=== PATIENT | female | born 1960 | race Caucasian/White ===

== ENCOUNTER 2018-04-23 12:47 | Emergency (ER) | payer MEDICAID ==
[2018-04-23] MEDS ORDERED: Acetaminophen/HYDROcodone 325-5 MG Tab ONE (13:00)
--- NOTE | 2018-04-23 13:28 | EDM.PDOC ---
ED HPI GENERAL MEDICAL PROBLEM - General Chief Complaint: General Stated Complaint: Lft Knee pain post inj Time Seen by Provider: 04/23/18 13:00 Source of Information: Reports: Patient History Limitations: Reports: No Limitations - History of Present Illness INITIAL COMMENTS - FREE TEXT/NARRATIVE: According to patient she had her left knee injected yesterday morning by . She claims that she had her knee injected with kenalog, and went back to work. she claims that her knee started hurting after injection and today has got worse. hurts to walk on her knee. She can bend her knee. no swelling of the left knee. No redness around the knee. Pt can weight bear on the knee, but hurts. no locking of the knee. Rate her knee pain at 10/10. Onset Date: 04/22/18 Location: Reports: Lower Extremity, Left Quality: Reports: Ache Severity: Severe Improves with: Reports: None Worsens with: Reports: None Associated Symptoms: Denies: Confusion, Chest Pain, Cough, Diaphoresis, Fever/ Chills, Headaches, Loss of Appetite, Malaise, Nausea/Vomiting, Rash, Seizure, Shortness of Breath, Syncope, Weakness - Related Data Allergies Allergy/AdvReac Type Severity Reaction Status Date / Time Sulfa (Sulfonamide Allergy Rash Verified 10/09/13 14:15 Antibiotics) ED ROS GENERAL - Review of Systems Review Of Systems: See Below Constitutional: Denies: Fever, Chills HEENT: Denies: Rhinitis, Throat Pain, Throat Swelling Respiratory: Denies: Cough, Sputum Cardiovascular: Denies: Chest Pain, Lightheadedness GI/Abdominal: Denies: Nausea, Vomiting Musculoskeletal: Reports: Joint Pain. Denies: Leg Pain, Foot Pain, Joint Swelling Skin: Reports: Bruising. Denies: Jaundice, Pruritis, Rash, Erythema ED EXAM, GENERAL - Physical Exam Exam: See Below Exam Limited By: No Limitations General Appearance: Alert, WD/WN, Mild Distress Eye Exam: Bilateral Eye: EOMI, PERRL Ears: Normal External Exam, Normal Canal, Hearing Grossly Normal, Normal TMs Ear Exam: Bilateral Ear: Auricle Normal, Canal Normal, TM normal Nose: Normal Inspection, Normal Mucosa, No Blood Throat/Mouth: Normal Inspection, Normal Lips, Normal Teeth, Normal Gums, Normal Oropharynx, Normal Voice, No Airway Compromise Head: Atraumatic, Normocephalic Neck: Normal Inspection, Supple, Non-Tender, Full Range of Motion Respiratory/Chest: No Respiratory Distress, Lungs Clear, Normal Breath Sounds, No Accessory Muscle Use, Chest Non-Tender Extremities: Normal Inspection, Normal Range of Motion, No Pedal Edema, Normal Capillary Refill, Other (left knee: There is skin brusiing at the injection site over the lateral aspect of the knee. HAs normal flexion and extension of the knee. no effsuion around the knee. No patellar tenderness. No warmth around the joint. She can weight bear on the knee, but painful gait.) Course - Vital Signs Text/Narrative:: Pt just had her left knee joint injected yesterday, has pain all around the knee joint. there is no redness, swelling noted. can weight bear and walk. this could be early joint infection or trauma to bone or hemarthrosis from injection. Xray of left knee shows increased swelling of the soft tissue around the joint. No joint effusion or acute injury noted. CBC is normal. Pt reassured and I have started her on vicodin 5/325 1 every 8 hrs as needed. side effects discussed. Avoid driving when on vicodin. Alternate heat with cold every 2-3 hrs. Rest and elevated the left leg. - Orders/Labs/Meds Orders: Active Orders 24 hr Category Date Time Status Knee 3V Lt [CR] Stat Exams 04/23/18 13:17 Ordered CBC WITH AUTO DIFF [HEME] Stat Lab 04/23/18 13:17 Ordered Departure - Departure Time of Disposition: 14:00 Disposition: Home, Self-Care 01 Condition: Fair Clinical Impression: Left knee pain - Discharge Information *PRESCRIPTION DRUG MONITORING PROGRAM REVIEWED*: Not Applicable *COPY OF PRESCRIPTION DRUG MONITORING REPORT IN PATIENT DEVON: Not Applicable Instructions: Knee Pain, Adult Referrals: PCP,None [Primary Care Provider] - Additional Instructions: Xray of left knee shows increased swelling of the soft tissue around the joint. No joint effusion or acute injury noted. CBC is normal. Pt is tender all around the joint. Pt reassured and I have started her on vicodin 5/325 1 every 8 hrs as needed. brian effects discussed. Avoid driving when on vicodin. alternate heat with cold every 2-3 hrs. Rest and elevated the left leg. - Problem List & Annotations (1) Left knee pain SNOMED Code(s): 61308367 Code(s): M25.562 - PAIN IN LEFT KNEE Status: Acute Current Visit: Yes - Problem List Review Problem List Initiated/Reviewed/Updated: Yes - My Orders Last 24 Hours: My Active Orders 04/23/18 13:17 Knee 3V Lt [CR] Stat CBC WITH AUTO DIFF [HEME] Stat - Assessment/Plan Last 24 Hours: My Active Orders 04/23/18 13:17 Knee 3V Lt [CR] Stat CBC WITH AUTO DIFF [HEME] Stat Assessment:: left knee pain
--- NOTE | 2018-04-24 08:34 | CR ---
DATE OF SERVICE: 04/23/18 CLINICAL DATA: knee pain LEFT KNEE: Comparison is made to a prior exam dated 02/08/18. No significant changes. No acute abnormalities. [id number] [facility]
== END 2018-04-23 14:05 | disposition home or self-care (01) ==
LOC: LB.ED 12:47
DX: M25.562 Pain in left knee (principal); Z88.2 Allergy status to sulfonamides
CPT/HCPCS: 36415; 73562; 85025; 99283; A9270

== ENCOUNTER 2020-09-03 10:43 | Observation (INO) | payer OTHER, MEDICAID ==
[2020-09-03] MEDS ORDERED: Sodium Chloride 0.9% 1,000 ML IV ONE (11:31)
[2020-09-03] MEDS ORDERED: HYDROmorphone 2 MG/ML SDV IVPUSH ONE (11:31)
[2020-09-03] MEDS ORDERED: HYDROmorphone 2 MG/ML SDV ONE (11:37)
--- NOTE | 2020-09-03 12:07 | EDM.PDOC ---
ED HPI GENERAL MEDICAL PROBLEM - General Chief Complaint: General Stated Complaint: COVID SYMPTOMS Time Seen by Provider: 09/03/20 11:45 Source of Information: Reports: Other (patient sent by Krista MCCORD from out patient clinic ) History Limitations: Reports: No Limitations - History of Present Illness INITIAL COMMENTS - FREE TEXT/NARRATIVE: 60 year old female came to Out door facility for post covid check up -referred to ER as she was feeling weak ,fatigued & short of breath & irrelevant speech.She was covid positive on aug 11 . she was seen in [facility] care in [facility] on aug 26 2020 Today she said that she is not feeling well -She reports that she is out of breath on walking.She reports on & off headache. The patient talks to much ,I called to & he told that she goes non stop talking ,sometime she had bad thoughts regarding his daughter & himself . He said that these symptoms happening for last 3 weeks after hits her .He reports that before she was doing every thing ok. denies fever, N/V ,vomiting , chest pain abd pain Onset: Today, Gradual Onset Date: 09/03/20 Onset Time: 10:00 Duration: Day(s): (6), Getting Worse Improves with: Reports: None Worsens with: Reports: None, Movement Associated Symptoms: Reports: Shortness of Breath, Weakness, Other (irelavent talks ) Generalized Pain Score (Numeric/FACES): 8 - Related Data Allergies Allergy/AdvReac Type Severity Reaction Status Date / Time Sulfa (Sulfonamide Allergy Rash Verified 09/03/20 11:29 Antibiotics) Home Meds: Home Meds Aspirin 81 mg PO DAILY 09/03/20 [History] Cyclobenzaprine [Flexeril] 10 mg PO BEDTIME 09/03/20 [History] FLUoxetine [PROzac] 20 mg PO BID 09/03/20 [History] Furosemide [Lasix] 20 mg PO DAILY 09/03/20 [History] Losartan [Cozaar] 50 mg PO BID 09/03/20 [History] Naproxen Sodium 220 mg PO BID 09/03/20 [History] Pantoprazole Sodium [Protonix] 40 mg PO DAILY 09/03/20 [History] Verapamil [Verelan] 240 mg PO DAILY 09/03/20 [History] Zolpidem Tartrate [Ambien] 10 mg PO BEDTIME 09/03/20 [History] tiZANidine [Zanaflex] 4 mg PO BEDTIME 09/03/20 [History] traMADol [Ultram] 50 mg PO Q6H PRN 09/03/20 [History] Past Medical History Cardiovascular History: Reports: Aneurysm (unruptured aneurysim of ascending aorta), Hypertension, SOB on Exertion Respiratory History: Reports: Other (See Below) (post covid symptoms) Musculoskeletal History: Reports: Fibromyalgia, Osteoarthritis, Other (See Below) (fibromylagia) Psychiatric History: Reports: Bipolar - Past Surgical History Other Surgical History Comment: bldder repair w urethral sling. joint replacement. laproscopic tubal ligation ED ROS GENERAL - Review of Systems Review Of Systems: See Below Constitutional: Reports: No Symptoms, Weakness, Fatigue HEENT: Reports: No Symptoms Respiratory: Reports: Shortness of Breath, Cough, Sputum, Other (rhonchi noted on basal area ) Cardiovascular: Reports: No Symptoms Endocrine: Reports: No Symptoms GI/Abdominal: Reports: No Symptoms : Reports: No Symptoms Musculoskeletal: Reports: No Symptoms, Other (myalgia ) Skin: Reports: No Symptoms Neurological: Reports: No Symptoms, Headache, Trouble Speaking, Change in Speech Psychiatric: Reports: No Symptoms, Other (excessive talking &start crying ) ED EXAM, GENERAL - Physical Exam Exam: See Below Exam Limited By: Other (presureed irrelavent speech) General Appearance: Alert, WD/WN, Anxious, Obese Nose: Normal Inspection Throat/Mouth: Normal Inspection Head: Atraumatic, Normocephalic Neck: Normal Inspection, Supple, Non-Tender, Full Range of Motion Respiratory/Chest: No Respiratory Distress, Normal Breath Sounds, Rhonchi (present on basal areas ), Other (ronchi present on basal areas ) Cardiovascular: Regular Rate, Rhythm, No Edema, No Gallop, No JVD, No Murmur, No Rub GI/Abdominal: Soft, Non-Tender, No Organomegaly, No Distention, No Abnormal Bruit, No Mass Extremities: Normal Inspection Neurological: Alert, Oriented, Other (pressured speech ) Skin Exam: Warm, Dry, Intact, Normal Color, No Rash Course - Vital Signs Text/Narrative:: Vitals monitored oxygen sat was 100 percent at room air labs ordered I/V hydration stated 1000 ml of n/saline in 4 hours d-dimers are 745 ng/ml headache - 2mg po I/V Dilaudid given CT of chest without contrast shows unruptured aneurysm of aorta -spoke with Krista for referral placement lactic acid is .5 PT = 10.4 INR = 1 urine shows nitrite -started ciprofloxacin 500 mg pobid spoke with Resistance Brazer(dr nell lawson) at [facility] regarding incidental finding of unruptured aorta & elevated D-dimer -he advised to repeat CT chest after one year -he also advised to start beta mya & Ac inhibitor for unruptured aneurysm . EKG shows non specific -no stemi ,no hyperacute t wave changes ,No st depression For elevated d-dimer , he advised x ray chest & CTA chest ordered chest x ray & PE scan PE scan shows no pulmonary embolism But shows viral pneumonia CT head done that shows no acute intracranial abnormality . The possibility of insitu clot cannot rule out .Need venous b/l Doppler. After discussion with decision was made to admit patient for observation. E-hospitalist was consulted . tomorrow we will do CRP & urine drug screen & I will the patient tomorrow. Last Recorded V/S: Last Vital Signs Temp 98.2 F 09/03/20 13:36 Pulse 81 09/03/20 16:30 Resp 18 09/03/20 16:30 BP 125/75 09/03/20 13:36 Pulse Ox 100 09/03/20 16:30 - Orders/Labs/Meds Orders: Active Orders 24 hr Category Date Time Status Admission Status [Patient Status] [ADT] Routine ADT 09/03/20 17:15 Ordered EKG Documentation Completion [RC] ASDIRECTED Care 09/03/20 15:46 Active Isolation [COMM] Routine Oth 09/03/20 11:55 Active EKG 12 Lead [EK] Routine Ther 09/03/20 15:46 Ordered Labs: Laboratory Tests 09/03/20 09/03/20 09/03/20 Range/Units 11:30 11:35 11:35 WBC 6.8 (4.0-11.0) K/uL RBC 3.30 L (3.80-5.80) M/uL Hgb 10.4 L (11.5-16.5) g/dL Hct 31.4 L (37.0-47.0) % MCV 95 (76-96) fL MCH 31.5 (27.0-32.0) pg MCHC 33.1 (31.0-35.0) g/dL RDW 12.6 (11.0-16.0) % Plt Count 183 D (150-500) K/uL MPV 10.4 H (6.0-10.0) fL Neut % (Auto) 60.3 (45.0-70.0) % Lymph % (Auto) 25.4 (20.0-40.0) % [place] % (Auto) 10.2 H (3.0-10.0) % Eos % (Auto) 3.1 (1.0-5.0) % Baso % (Auto) 1.0 H (0.0-0.5) % Neut # (Auto) 4.07 (2.00-7.50) K/uL Lymph # (Auto) 1.72 (1.50-4.00) K/uL [place] # (Auto) 0.69 (0.20-0.80) K/uL Eos # (Auto) 0.21 (0.04-0.40) K/uL Baso # (Auto) 0.07 (0.02-0.10) K/uL PT (9.0-11.5) sec INR (1.0-3.5) D-Dimer, Quantitative 745 H (0-400) ng/mL Sodium (136-145) mmol/L Potassium (3.5-5.1) mmol/L Chloride (98-107) mmol/L Carbon Dioxide (21.0-32.0) mmol/L Anion Gap (5.0-15.0) mmol/L BUN (8-26) mg/dL Creatinine (0.55-1.02) mg/dL Est Cr Clr Drug Dosing Estimated GFR (MDRD) (>60) MLS/MIN BUN/Creatinine Ratio (6-25) Glucose (74-100) mg/dL Lactic Acid (0.4-2.0) mmol/L Calcium (8.5-10.1) mg/dL B-Natriuretic Peptide (0-125) pg/mL Urine Color Yellow Urine Appearance Slightly cloudy (CLEAR) Urine pH 6.0 (5.0-8.0) Ur Specific [place] 1.020 (1.003-1.030) Urine Protein Negative (NEGATIVE) mg/dL Urine Glucose (UA) Negative (NEGATIVE) mg/dL Urine Ketones Negative (NEGATIVE) mg/dL Urine Occult Blood Small H (NEGATIVE) Urine Nitrite Positive H (NEGATIVE) Urine Bilirubin Negative (NEGATIVE) Urine Urobilinogen 0.2 (0.2-1.0) E.U./dL Ur Leukocyte Esterase Trace H (NEGATIVE) Urine RBC 0-5 H /HPF Urine WBC 10-20 H /HPF Ur Epithelial Cells Few /HPF Urine Bacteria Many H /HPF 09/03/20 09/03/20 09/03/20 Range/Units 11:35 11:35 13:27 WBC (4.0-11.0) K/uL RBC (3.80-5.80) M/uL Hgb (11.5-16.5) g/dL Hct (37.0-47.0) % MCV (76-96) fL MCH (27.0-32.0) pg MCHC (31.0-35.0) g/dL RDW (11.0-16.0) % Plt Count (150-500) K/uL MPV (6.0-10.0) fL Neut % (Auto) (45.0-70.0) % Lymph % (Auto) (20.0-40.0) % [place] % (Auto) (3.0-10.0) % Eos % (Auto) (1.0-5.0) % Baso % (Auto) (0.0-0.5) % Neut # (Auto) (2.00-7.50) K/uL Lymph # (Auto) (1.50-4.00) K/uL Mingo # (Auto) (0.20-0.80) K/uL Eos # (Auto) (0.04-0.40) K/uL Baso # (Auto) (0.02-0.10) K/uL PT 10.4 D (9.0-11.5) sec INR 1.0 D (1.0-3.5) D-Dimer, Quantitative (0-400) ng/mL Sodium 143 (136-145) mmol/L Potassium 4.0 (3.5-5.1) mmol/L Chloride 104 (98-107) mmol/L Carbon Dioxide 29.2 (21.0-32.0) mmol/L Anion Gap 13.8 (5.0-15.0) mmol/L BUN 24 D (8-26) mg/dL Creatinine 0.90 (0.55-1.02) mg/dL Est Cr Clr Drug Dosing TNP Estimated GFR (MDRD) > 60 (>60) MLS/MIN BUN/Creatinine Ratio 26.7 H (6-25) Glucose 86 (74-100) mg/dL Lactic Acid (0.4-2.0) mmol/L Calcium 8.9 (8.5-10.1) mg/dL B-Natriuretic Peptide 294 H (0-125) pg/mL Urine Color Urine Appearance (CLEAR) Urine pH (5.0-8.0) Ur Specific [place] (1.003-1.030) Urine Protein (NEGATIVE) mg/dL Urine Glucose (UA) (NEGATIVE) mg/dL Urine Ketones (NEGATIVE) mg/dL Urine Occult Blood (NEGATIVE) Urine Nitrite (NEGATIVE) Urine Bilirubin (NEGATIVE) Urine Urobilinogen (0.2-1.0) E.U./dL Ur Leukocyte Esterase (NEGATIVE) Urine RBC /HPF Urine WBC /HPF Ur Epithelial Cells /HPF Urine Bacteria /HPF 09/03/20 Range/Units 13:27 WBC (4.0-11.0) K/uL RBC (3.80-5.80) M/uL Hgb (11.5-16.5) g/dL Hct (37.0-47.0) % MCV (76-96) fL MCH (27.0-32.0) pg MCHC (31.0-35.0) g/dL RDW (11.0-16.0) % Plt Count (150-500) K/uL MPV (6.0-10.0) fL Neut % (Auto) (45.0-70.0) % Lymph % (Auto) (20.0-40.0) % [place] % (Auto) (3.0-10.0) % Eos % (Auto) (1.0-5.0) % Baso % (Auto) (0.0-0.5) % Neut # (Auto) (2.00-7.50) K/uL Lymph # (Auto) (1.50-4.00) K/uL [place] # (Auto) (0.20-0.80) K/uL Eos # (Auto) (0.04-0.40) K/uL Baso # (Auto) (0.02-0.10) K/uL PT (9.0-11.5) sec INR (1.0-3.5) D-Dimer, Quantitative (0-400) ng/mL Sodium (136-145) mmol/L Potassium (3.5-5.1) mmol/L Chloride (98-107) mmol/L Carbon Dioxide (21.0-32.0) mmol/L Anion Gap (5.0-15.0) mmol/L BUN (8-26) mg/dL Creatinine (0.55-1.02) mg/dL Est Cr Clr Drug Dosing Estimated GFR (MDRD) (>60) MLS/MIN BUN/Creatinine Ratio (6-25) Glucose (74-100) mg/dL Lactic Acid 0.5 (0.4-2.0) mmol/L Calcium (8.5-10.1) mg/dL B-Natriuretic Peptide (0-125) pg/mL Urine Color Urine Appearance (CLEAR) Urine pH (5.0-8.0) Ur Specific [place] (1.003-1.030) Urine Protein (NEGATIVE) mg/dL Urine Glucose (UA) (NEGATIVE) mg/dL Urine Ketones (NEGATIVE) mg/dL Urine Occult Blood (NEGATIVE) Urine Nitrite (NEGATIVE) Urine Bilirubin (NEGATIVE) Urine Urobilinogen (0.2-1.0) E.U./dL Ur Leukocyte Esterase (NEGATIVE) Urine RBC /HPF Urine WBC /HPF Ur Epithelial Cells /HPF Urine Bacteria /HPF Meds: Medications Discontinued Medications Generic Name Dose Route Start Last Admin Trade Name Freq PRN Reason Stop Dose Admin Ciprofloxacin 500 mg 09/03/20 13:46 09/03/20 13:49 Ciprofloxacin Hcl PO 09/03/20 13:47 500 mg ONETIME ONE Administration Hydromorphone HCl Confirm 09/03/20 11:37 09/03/20 11:42 Dilaudid Administered 09/03/20 11:38 Not Given Dose 2 mg .ROUTE .STK-MED ONE Hydromorphone HCl 2 mg 09/03/20 11:31 09/03/20 11:41 Dilaudid IVPUSH 09/03/20 11:32 2 mg ONETIME ONE Administration Sodium Chloride 1,000 mls @ 250 mls/hr 09/03/20 11:31 09/03/20 11:39 Normal Saline IV 09/03/20 15:30 250 mls/hr .BOLUS ONE Administration Departure - Departure Time of Disposition: 18:00 Disposition: Refer to Observation Condition: Fair Clinical Impression: UTI, Urinary tract infectious disease - Discharge Information Instructions: Community-Acquired Pneumonia, Adult, [id number], Urinary Tract Infection, Adult, Urosepsis, Adult Forms: ED Department Discharge Additional Instructions: Discharge home. Follow up with testing coordinator. Follow up with primary care provider in the clinic in 3 days. Cipro 500mg by mouth 2 times a day for 7 days. Call or return to the ER if you have increased pain, shortness of breath. Care Plan Goals: start ciprofloxcin 500 mg Pobid DO CRP & drug screen tomorrow monitors vital O sat monitoring Sepsis Event Note (ED) - Evaluation Sepsis Screening Result: No Definite Risk - Focused Exam Vital Signs: Vital Signs Temp Pulse Resp BP Pulse Ox 09/03/20 16:30 81 18 100 09/03/20 15:41 81 18 100 09/03/20 13:58 84 18 100 09/03/20 13:36 98.2 F 84 18 125/75 100 09/03/20 13:28 71 18 100 09/03/20 12:54 69 18 100 09/03/20 12:26 81 18 100 09/03/20 12:14 78 18 98 09/03/20 11:20 98.1 F 81 20 148/86 H 100 09/03/20 11:06 98.1 F 81 20 148/86 H 100 - Problem List & Annotations (1) Viral pneumonia SNOMED Code(s): 03949635 Code(s): J12.9 - VIRAL PNEUMONIA, UNSPECIFIED Status: Acute Priority: Medium Current Visit: Yes Onset Date: ~09/03/20 Annotation/Comment:: continue sat monitoring (2) UTI (urinary tract infection) SNOMED Code(s): 04579824 Code(s): N39.0 - URINARY TRACT INFECTION, SITE NOT SPECIFIED Status: Acute Priority: Medium Current Visit: Yes Onset Date: ~09/03/20 Annotation/Comment:: continue ciprofloxcin orally (3) Elevated d-dimer SNOMED Code(s): 959539139 Code(s): R79.89 - OTHER SPECIFIED ABNORMAL FINDINGS OF BLOOD CHEMISTRY Status: Acute Priority: Medium Current Visit: Yes Onset Date: ~09/03/20 Annotation/Comment:: monitor it (4) AMS (altered mental status) SNOMED Code(s): 252750129 Code(s): R41.82 - ALTERED MENTAL STATUS, UNSPECIFIED Status: Acute Priority: Medium Current Visit: Yes Onset Date: ~09/03/20 Annotation/Comment:: monitor the patient - My Orders Last 24 Hours: My Active Orders 09/03/20 11:55 Isolation [COMM] Routine 09/03/20 15:46 EKG Documentation Completion [RC] ASDIRECTED EKG 12 Lead [EK] Routine 09/03/20 17:15 Admission Status [Patient Status] [ADT] Routine - Assessment/Plan Last 24 Hours: My Active Orders 09/03/20 11:55 Isolation [COMM] Routine 09/03/20 15:46 EKG Documentation Completion [RC] ASDIRECTED EKG 12 Lead [EK] Routine 09/03/20 17:15 Admission Status [Patient Status] [ADT] Routine
[2020-09-03] MEDS ORDERED: Ciprofloxacin 500 MG Tab PO ONE (13:46)
--- NOTE | 2020-09-03 16:01 | CR ---
DATE OF SERVICE: 09/03/2020 CLINICAL DATA: SOB AP Chest: There are no priors. The heart size is normal. The aorta is ectatic. The patient has taken a poor inspiration. There is a subtle ground-glass opacity in the right upper lung. Viral pneumonia should be considered. No pneumothorax. No pleural effusions. MTDD
--- NOTE | 2020-09-03 16:07 | CT ---
DATE OF SERVICE: 09/03/2020 CLINICAL DATA: SOB Unenhanced Chest CT: No priors. There are subtle ground-glass opacities noted in the right upper lobe, right lower lobe, left upper lobe, and left lower lobe with a small area of consolidation in the right lower lobe medially. Viral pneumonia should be considered. The left lung is clear. No pneumothorax. No pleural effusions. The heart size is normal. There are calcifications in the region of the aortic valve. The ascending aorta is aneurysmal. It measures 4.6 cm in diameter. No hilar or mediastinal adenopathy. No other significant findings. Impression: Abnormal exam. See above. MTDD
--- NOTE | 2020-09-03 16:07 | CT ---
DATE OF SERVICE: 09/03/2020 CLINICAL DATA: sob Enhanced chest CT: The multi slice acquisition through the chest with IV contrast was performed. No evidence of PE. No pneumothorax. No pleural effusions. There are subtle, patchy, ground-glass opacities noted in the right upper lobe, right lower lobe, left upper lobe, and left upper lobe with a small area of consolidation in the right lower lobe medially. Viral pneumonia should be considered. Heart size is normal. The ascending aorta is aneurysmal measures 4.6 cm in diameter. No evidence of aortic dissection. No hilar or mediastinal adenopathy. There is a small hiatal hernia. Impression: Abnormal exam. See above. MTDD
[2020-09-03] MEDS ORDERED: Ondansetron 4 MG/2 ML SDV IVPUSH PRN (20:27)
[2020-09-03] MEDS ORDERED: Acetaminophen 325 MG Tab PO PRN (20:28)
[2020-09-03] MEDS ORDERED: GI Cocktail Oral Solution 30 ML PO ONE (21:06)
[2020-09-04] MEDS ORDERED: LORazepam 0.5 MG Tab ONE (00:18)
[2020-09-04] MEDS ORDERED: LORazepam 0.5 MG Tab PO PRN (03:10)
[2020-09-04] MEDS ORDERED: Ciprofloxacin 500 MG Tab ONE (06:00)
[2020-09-04] MEDS ORDERED: Aspirin 325 MG Tab.EC PO SCH (08:00)
[2020-09-04] MEDS ORDERED: Enoxaparin 40 MG/0.4 ML Syringe SUBCUT SCH (08:00)
--- NOTE | 2020-09-04 08:25 | CT ---
DATE OF SERVICE: 09/03/20 CLINICAL DATA: change in mental status UNENHANCED BRAIN CT: No priors. There are prominent sulci in the anterior parietal regions bilaterally, left greater than right. This may be focal atrophy. It may be related to prior trauma or a prior infectious process. No masses. No intracranial hemorrhage. No evidence of acute or subacute infarct. No osseous abnormalities. IMPRESSION: No acute intracranial abnormalities. [id number] [facility]
--- NOTE | 2020-09-04 14:31 | PCM.DCSUM1 ---
Discharge Summary - Hospital Course Free Text/Narrative:: 60 year old female came with shortness of breath ,fatigue & myalgia - post covid symptom.,covid hit her on aug 11 2020 . She also had some issues ,like talk excessively, anxiety & lethargy . - Discharge Data Discharge Date: 09/04/20 Discharge Disposition: Against Medical Advice 07 Condition: Undetermined - Referral to Home Health Primary Care Physician: PCP None - Discharge Diagnosis/Problem(s) (1) Viral pneumonia SNOMED Code(s): 79994155 ICD Code: J12.9 - VIRAL PNEUMONIA, UNSPECIFIED Status: Acute Priority: Medium Onset Date: ~09/03/20 Problem Details: continue sat monitoring (2) UTI (urinary tract infection) SNOMED Code(s): 25021950 ICD Code: N39.0 - URINARY TRACT INFECTION, SITE NOT SPECIFIED Status: Acute Priority: Medium Onset Date: ~09/03/20 Problem Details: continue ciprofloxcin orally (3) Elevated d-dimer SNOMED Code(s): 829224394 ICD Code: R79.89 - OTHER SPECIFIED ABNORMAL FINDINGS OF BLOOD CHEMISTRY Status: Acute Priority: Medium Onset Date: ~09/03/20 Problem Details: monitor it (4) AMS (altered mental status) SNOMED Code(s): 587730754 ICD Code: R41.82 - ALTERED MENTAL STATUS, UNSPECIFIED Status: Acute Priority: Medium Onset Date: ~09/03/20 Problem Details: monitor the patient - Discharge Plan Home Medications: Home Meds Aspirin 81 mg PO DAILY 09/03/20 [History] Cyclobenzaprine [Flexeril] 10 mg PO BEDTIME 09/03/20 [History] FLUoxetine [PROzac] 20 mg PO BID 09/03/20 [History] Furosemide [Lasix] 20 mg PO DAILY 09/03/20 [History] Losartan [Cozaar] 50 mg PO BID 09/03/20 [History] Naproxen Sodium 220 mg PO BID 09/03/20 [History] Pantoprazole Sodium [Protonix] 40 mg PO DAILY 09/03/20 [History] Verapamil [Verelan] 240 mg PO DAILY 09/03/20 [History] Zolpidem Tartrate [Ambien] 10 mg PO BEDTIME 09/03/20 [History] tiZANidine [Zanaflex] 4 mg PO BEDTIME 09/03/20 [History] traMADol [Ultram] 50 mg PO Q6H PRN 09/03/20 [History] Patient Handouts: Urinary Tract Infection, Adult, Urosepsis, Adult, Community- Acquired Pneumonia, Adult, [id number] Forms: ED Department Discharge - Discharge Summary/Plan Comment DC Time >30 min.: No (she left against medical advice .) - Patient Data Vitals - Most Recent: Last Vital Signs Temp 97.4 F 09/04/20 04:00 Pulse 77 09/04/20 04:00 Resp 16 09/04/20 04:00 BP 154/85 H 09/04/20 04:00 Pulse Ox 100 09/04/20 04:00 Lab Results - Last 24 hrs: Laboratory Results - last 24 hr 09/03/20 Range/Units 20:26 Urine Opiates Screen Negative (NEGATIVE) Ur Oxycodone Screen Negative (NEGATIVE) Urine Methadone Screen Negative (NEGATIVE) Ur Barbiturates Screen Negative (NEGATIVE) Ur Tricyclics Screen Negative (NEGATIVE) Ur Phencyclidine Scrn Negative (NEGATIVE) Ur Amphetamine Screen Positive H (NEGATIVE) U Methamphetamines Scrn Negative (NEGATIVE) Urine MDMA Screen Negative (NEGATIVE) U Benzodiazepines Scrn Negative (NEGATIVE) U Cocaine Metab Screen Negative (NEGATIVE) U Marijuana (THC) Screen Negative (NEGATIVE) Med Orders - Current: Current Medications Discontinued Medications Acetaminophen (Tylenol) 325 - 650 mg PO Q6H PRN PRN Reason: Pain Last Admin: 09/03/20 20:38 Dose: 650 mg Documented by: Al Hydroxide/Mg Hydroxide (Gi Cocktail) 30 ml PO ONETIME ONE Stop: 09/03/20 21:07 Last Admin: 09/03/20 21:09 Dose: 30 ml Documented by: Aspirin (Ecotrin) 325 mg PO DAILY JC Ciprofloxacin (Ciprofloxacin Hcl) 500 mg PO ONETIME ONE Stop: 09/03/20 13:47 Last Admin: 09/03/20 13:49 Dose: 500 mg Documented by: Ciprofloxacin (Ciprofloxacin Hcl) 3,000 mg .ROUTE .STK-MED ONE Stop: 09/04/20 06:01 Enoxaparin Sodium (Lovenox) 40 mg SUBCUT DAILY [facility] Hydromorphone HCl (Dilaudid) Confirm Administered Dose 2 mg .ROUTE .STK-MED ONE Stop: 09/03/20 11:38 Last Admin: 09/03/20 11:42 Dose: Not Given Documented by: Hydromorphone HCl (Dilaudid) 2 mg IVPUSH ONETIME ONE Stop: 09/03/20 11:32 Last Admin: 09/03/20 11:41 Dose: 2 mg Documented by: Sodium Chloride (Normal Saline) 1,000 mls @ 250 mls/hr IV .BOLUS ONE Stop: 09/03/20 15:30 Last Admin: 09/03/20 11:39 Dose: 250 mls/hr Documented by: Lorazepam (Ativan) Confirm Administered Dose 0.5 mg .ROUTE .STK-MED ONE Stop: 09/04/20 00:19 Last Admin: 09/04/20 03:12 Dose: Not Given Documented by: Lorazepam (Ativan) 0.5 mg PO Q6H PRN PRN Reason: Insomnia Last Admin: 09/04/20 00:20 Dose: 0.5 mg Documented by: Ondansetron HCl (Zofran) 4 mg IVPUSH Q4H PRN PRN Reason: Nausea/Vomiting
== END 2020-09-04 06:33 | disposition left against medical advice (07) ==
LOC: LB.ED 10:43 → LB.MS 17:03 → UNDOADMOB 17:10 → UNDODISOB 09-04 06:33
PROVIDERS: ADMIT Physician Assistant; ATTEND Physician Assistant
DX: J12.89 Other viral pneumonia (principal); R53.1 Weakness; R06.82 Tachypnea, not elsewhere classified; N39.0 Urinary tract infection, site not specified; R79.89 Other specified abnormal findings of blood chemistry; R41.82 Altered mental status, unspecified; Z88.2 Allergy status to sulfonamides; Z79.899 Other long term (current) drug therapy; Z86.16 Personal history of COVID-19
CPT/HCPCS: 36415; 70450; 71045; 71250; 71260; 80048; 80307; 81001; 83605; 83880; 85025; 85379; 85610; 93005; 96374; 99285; A9270; G0378; J1170; J7030; 71270; 99217; 99218

== ENCOUNTER 2021-09-16 08:04 | Emergency (ER) | payer MEDICAID | END 2021-09-16 09:15 | disposition home or self-care (01) | LOC: LB.ED 08:04 | DX: S05.02XA Injury of conjunctiva and corneal abrasion without foreign body, left eye, initial encounter (principal); I10 Essential (primary) hypertension; M19.90 Unspecified osteoarthritis, unspecified site; Z88.2 Allergy status to sulfonamides; Z79.82 Long term (current) use of aspirin; Z79.899 Other long term (current) drug therapy; W22.09XA Striking against other stationary object, initial encounter | CPT/HCPCS: 99283 ==

== ENCOUNTER 2023-11-22 14:06 | Emergency (ER) | payer MEDICAID ==
[2023-11-22] MEDS: Ketorolac 30 MG/ML SDV IM ONE (14:53)
[2023-11-22] MEDS: Ketorolac 30 MG/ML SDV ONE (16:36)
== END 2023-11-22 14:55 | disposition home or self-care (01) ==
LOC: LB.ED 14:06
DX: K02.9 Dental caries, unspecified (principal); I10 Essential (primary) hypertension; Z88.2 Allergy status to sulfonamides; Z79.899 Other long term (current) drug therapy; Z79.82 Long term (current) use of aspirin
CPT/HCPCS: 96372; 99282; J1885

== ENCOUNTER 2025-03-01 20:04 | Observation (INO) | payer OTHER ==
[2025-03-01 20:44] LABS: BASOPHILS ABSOLUTE AUTO 0.03 K/uL (0.02-0.10); BASOPHILS PERCENT AUTO 0.3 % (0.0-0.5); EOSINOPHILS ABSOLUTE AUTO 0.11 K/uL (0.04-0.40); EOSINOPHILS PERCENT AUTO 1.2 % (1.0-5.0); LYMPHOCYTES ABSOLUTE AUTO 1.87 K/uL (1.50-4.00); LYMPHOCYTES PERCENT AUTO 21.0 % (20.0-40.0); MEAN PLATELET VOLUME 10.7 fL (6.0-10.0); MONOCYTES ABSOLUTE AUTO 0.95 K/uL (0.20-0.80); MONOCYTES PERCENT AUTO 10.7 % (3.0-10.0); NEUTROPHILS ABSOLUTE AUTO 5.95 K/uL (2.00-7.50); NEUTROPHILS PERCENT AUTO 66.8 % (45.0-70.0); PLATELET COUNT,PLT 159 K/uL (150-500); RED BLOOD CELL COUNT 2.90 M/uL (3.80-5.80); RED CELL DISTRIBUTION WIDTH 13.1 % (11.0-16.0); WHITE BLOOD CELL COUNT,WBC 8.9 K/uL (4.0-11.0)
[2025-03-01 21:19] LABS: INFLUENZA A NAA NEGATIVE (NEGATIVE); INFLUENZA B NAA NEGATIVE (NEGATIVE); RESPIRATORY SYNCYTIAL VIR NAA NEGATIVE (NEGATIVE)
[2025-03-01 21:25] LABS: CORONAVIRUS COVID-19 NAA NEGATIVE (NEGATIVE)
[2025-03-01 21:41] LABS: BLOOD UREA NITROGEN,BUN 40.0 mg/dL (8-26); CREATININE 1.63 mg/dL (0.55-1.02); EST CRCL DRUG DOSING (CG) 25.7 mL/min; ESTIMATED GFR 35.0 mL/min (>60); GLUCOSE RANDOM 103.0 mg/dL (74-100)
[2025-03-01 22:08] LABS: CARBON DIOXIDE,CO2 29.8 mmol/L (21.0-32.0); CHLORIDE,CL 99.0 mmol/L (98-107); POTASSIUM,K 5.0 mmol/L (3.5-5.1); SODIUM,NA 135.0 mmol/L (136-145)
[2025-03-01] MEDS: Furosemide 40 MG/4 ML VIAL IV ONE (22:48)
[2025-03-01] MEDS ORDERED: IBUPROFEN 200 MG PO PRN (23:01)
[2025-03-01] MEDS ORDERED: Acetaminophen 650 MG Tab.ER PO PRN (23:01)
[2025-03-01] MEDS ORDERED: OXYCODONE HCL 10 MG PO PRN (23:04)
[2025-03-01] MEDS ORDERED: OXYCODONE HCL 10 MG PO SCH (23:15)
[2025-03-02] MEDS ORDERED: Oxybutynin 5 MG Tab.ER PO SCH (08:00)
[2025-03-02] MEDS ORDERED: Aspirin 325 MG Tab.EC PO SCH (08:00)
[2025-03-02] MEDS ORDERED: TEMAZEPAM 15 MG PO SCH (20:00)
== END 2025-03-02 00:03 | disposition left against medical advice (07) ==
LOC: LB.ED 20:04 → LB.MS 22:55
PROVIDERS: ADMIT Surgery; ATTEND Surgery
DX: I11.0 Hypertensive heart disease with heart failure (principal); I50.9 Heart failure, unspecified; E87.70 Fluid overload, unspecified; R35.89 Other polyuria; R06.02 Shortness of breath; R05.9 Cough, unspecified; E66.9 Obesity, unspecified; Z88.8 Allergy status to other drugs, medicaments and biological substances; Z88.2 Allergy status to sulfonamides; Z86.16 Personal history of COVID-19; Z79.82 Long term (current) use of aspirin; Z79.899 Other long term (current) drug therapy
CPT/HCPCS: 36415; 71045; 80048; 83880; 85025; 85379; 87637; G0378; J1938